=== PATIENT | male | born 1990 | race Caucasian/White ===

== ENCOUNTER 2018-04-14 15:11 | Emergency (ER) | payer OTHER ==
[~2018-04-14] VITALS: Ht 167.6 cm; Wt 65.3 kg
[2018-04-14 15:33] VITALS: Ht 167.6 cm; Wt 65.3 kg
[2018-04-14 16:37] VITALS: BP 132/78
== END 2018-04-14 16:37 | disposition home or self-care (01) ==
LOC: ED 15:11
DX: S43.101A Unspecified dislocation of right acromioclavicular joint, initial encounter (principal); V00.131A Fall from skateboard, initial encounter; Y93.51 Activity, roller skating (inline) and skateboarding; Y92.89 Other specified places as the place of occurrence of the external cause; Y99.8 Other external cause status